=== PATIENT | male | born 1960 | race Caucasian/White ===

== ENCOUNTER 2018-10-09 06:18 | Emergency (ER) | payer OTHER ==
[2018-10-09] MEDS: IBUPROFEN 600 MG TAB PO (07:01)
[2018-10-09] MEDS: ACETAMINOPHEN 500 MG TAB PO (07:01)
== END 2018-10-09 07:46 | disposition home or self-care (01) ==
LOC: FTE 06:18
DX: J10.1 Influenza due to other identified influenza virus with other respiratory manifestations (principal)
CPT/HCPCS: 71046; 87400; 99284-25